=== PATIENT | female | born 1965 | race African-American/Black ===

== ENCOUNTER → 2024-05-08 07:06 | Outpatient (REF) | payer OTHER, SELFPAY | LOC: WDC 07:06 | PROVIDERS: ATTENDING PHYSICIAN Obstetrics & Gynecology; FAMILY PHYSICIAN Family Medicine | DX: Z12.31 Encounter for screening mammogram for malignant neoplasm of breast (principal) | CPT/HCPCS: 77063; 77067 ==

== ENCOUNTER → 2024-05-25 10:09 | Outpatient (REF) | payer OTHER, SELFPAY | LOC: WDC 10:09 | PROVIDERS: ATTENDING PHYSICIAN Obstetrics & Gynecology; FAMILY PHYSICIAN Family Medicine | DX: R92.8 Other abnormal and inconclusive findings on diagnostic imaging of breast (principal) | CPT/HCPCS: 76642 ==